=== PATIENT | male | born 1945 | race Caucasian/White ===

== ENCOUNTER → 2016-09-01 | Outpatient (CLI) | payer MEDICARE ==
--- NOTE | 2016-09-04 14:10 | PN ---
A 70-year-old male patient coming to see me in followup regarding symptomatic obstructing sleep apnea. The patient is currently on a CPAP pressure of 12 cm of water. His average CPAP use is 6 hours and 42 minutes. The treatment remains successful and his AHI is down to 0.1. No complaints. His sleep quality is good and the patient is waking up refreshed and alert during the day. Does not fall asleep or take any naps during the day. He is utilizing a Quattro Air Medium size full-face mask. BP is 118/54, pulse 71, respirations 16, temperature is 97.9, saturation 97% on room air. Height is 5, 4, weight is 352 and [place] Score is 8, BMP is 42.3. GENERAL APPEARANCE: Calm, comfortable. HEENT: Mallampati class 4, there is no goiter or neck masses. LUNGS: Clear to auscultation. Heart sounds are regular rate and rhythm, normal S1, S2. ABDOMEN: Soft, nontender, no organomegaly. EXTREMITIES: No edema, no cyanosis or clubbing. IMPRESSION: Symptomatic obstructive sleep apnea, currently on CPAP of 12 with excellent clinical response and compliance. PLAN: 1. Continue treatment at the same level of pressure. 2. If treatment is successful, see me back in a year's time. His supplies will be refilled including mask, tubing and filters. BK
== END | disposition home or self-care (01) ==
LOC: SLEEP 13:18
PROVIDERS: ATTEND Internal Medicine Critical Care Medicine
DX: G47.33 Obstructive sleep apnea (adult) (pediatric) (principal)

== ENCOUNTER → 2017-03-11 | Outpatient (CLI) | payer MEDICARE ==
[2017-03-11 12:23] LABS: Basophils % (A) 0 %; Eosinophils # (A) 0.3 k/uL (0-0.7); Eosinophils % (A) 4 %; HCT 36.9 % (39.0-53.0); HGB 11.4 gm/dL (13.0-17.5); Lymphocytes # (A) 1.1 k/uL (1.0-4.8); Lymphocytes % (A) 16 %; MCHC 30.9 g/dL (31.0-37.0); Mean Platelet Volume 7.7; Monocytes # (A) 0.3 k/uL (0-1.0); Monocytes % (A) 5 %; Neutrophils # (A) 4.9 k/uL (1.3-7.7); Neutrophils % (A) 73 %; Platelet Count 267 k/uL (150-450); RDW 13.5 % (11.5-15.5); WBC 6.8 k/uL (3.8-10.6)
[2017-03-11 12:32] LABS: ALT 27 U/L (21-72); AST 15 U/L (17-59); Albumin 3.9 g/dL (3.5-5.0); Alkaline Phosphatase 79 U/L (38-126); Anion Gap 10 mmol/L; Blood Urea Nitrogen 26 mg/dL (9-20); Calcium 9.6 mg/dL (8.4-10.2); Carbon Dioxide 27 mmol/L (22-30); Chloride 105 mmol/L (98-107); Cholesterol 124 mg/dL (<200); Glucose 138 mg/dL (74-99); HDL Cholesterol 48 mg/dL (40-60); LDL Cholesterol,Calculated 60 mg/dL (0-99); Potassium 4.3 mmol/L (3.5-5.1); Sodium 142 mmol/L (137-145); Total Bilirubin 0.4 mg/dL (0.2-1.3); Total Protein 6.6 g/dL (6.3-8.2); Triglycerides 80 mg/dL (<150)
[2017-03-11 13:03] LABS: Partial Thromboplastin Time 23.5 sec (22.0-30.0); Prothrombin Time 10.1 sec (9.0-12.0)
[2017-03-11 16:57] LABS: Hemoglobin A1C 6.6 % (4.0-6.0)
== END ==
LOC: LABPAT 11:44
PROVIDERS: ATTEND Orthopaedic Surgery
DX: Z01.818 Encounter for other preprocedural examination (principal); Z01.812 Encounter for preprocedural laboratory examination; Z79.01 Long term (current) use of anticoagulants; I10 Essential (primary) hypertension; E11.9 Type 2 diabetes mellitus without complications
CPT/HCPCS: 36415; 80053; 80061; 83036; 85025; 85610; 85730; 87070

== ENCOUNTER 2017-03-22 05:41 | Inpatient (IN) | payer MEDICARE ==
[2017-03-11 16:35] VITALS: BMI 43.6
--- NOTE | 2017-03-21 14:49 | HP ---
HISTORY AND PHYSICAL REASON FOR ADMISSION: Surgery is scheduled for 03/22/2017 HISTORY OF PRESENT ILLNESS: Asher Clifton is a 71-year-old patient seen with symptomatic left knee osteoarthritis. After treatment options were discussed, he elected to proceed with left total knee arthroplasty. Consent regarding the procedure was obtained. Medical clearance was provided by Dr. Alex Osullivan. PAST MEDICAL HISTORY: Hypertension, hyperlipidemia, rxj-gpslcds-zvexbgiko diabetes, cardiovascular disease, asthma. PAST SURGICAL HISTORY: Right total knee arthroplasty. MEDICATIONS: Glipizide, isosorbide, Lipitor, metformin, metoprolol, Plavix, quinapril, sertraline, Ventolin. ALLERGIES: IV DYE. SOCIAL HISTORY: Patient denies current tobacco use. PHYSICAL EXAMINATION: Evaluation of the left knee is range of motion is 0-120 degrees. There is tenderness along the medial joint line. Positive medial Dany's crepitus along the medial and patellofemoral compartments with range of motion. Pain with patellofemoral compression. Ligaments stable. Hip rotation without pain. Distal neurovascular exam intact. RADIOGRAPHS: Left knee radiographs reveal severe medial and moderate to severe patellofemoral compartment osteoarthritis. IMPRESSION: 1. Left knee osteoarthritis. 2. Rst-vspiuap-cnsfbchqf diabetes. 3. Hypertension. 4. Hyperlipidemia. 5. Coronary artery disease. PLAN: Left total knee arthroplasty. Surgery scheduled for 03/22/17. MMODL / IJN: [id number] /
[~2017-03-22 05:41] MED LIST: ACETAMINOPHEN TAB 500 MG TAB PO ONE; DEXAMETHASONE SOD PHOSPHATE 10 MG/ML 1 ML VIAL IV ONE; HYDROmorphone 0.5 MG/0.5 ML SYRINGE IVP PRN; LACTATED RINGERS 1,000 ML IV SCH; MELOXICAM 7.5 MG TAB PO ONE; MIDAZOLAM 2 MG/2 ML VIAL IV PRN; ONDANSETRON 4 MG/2 ML VIAL IVP ONE; TRANEXAMIC ACID 1,000 MG in SODIUM CHLORIDE 0.9% 50 ML IVPB ONE; ceFAZolin IN SWFI 2 GM/20 ML SYRINGE IVP ONE
[2017-03-22] MEDS ORDERED: LIDOCAINE 1% 20 ML VIAL (10MG/ML) FOR IV START INTRADERMA ONE (06:17)
[2017-03-22] MEDS ORDERED: LACTATED RINGERS 1,000 ML IV ONE ×2 (06:20→08:05)
[2017-03-22 06:31] LABS: Glucose,Whole Blood 105 mg/dL (75-99)
[2017-03-22] MEDS ORDERED: MIDAZOLAM 2 MG/2 ML VIAL IVP ONE (06:40)
[2017-03-22] MEDS ORDERED: diphenhydrAMINE 50 MG/ML 1 ML VIAL ONE (07:30)
[2017-03-22] MEDS ORDERED: SODIUM CHLORIDE 0.9% 100 ML BAG ONE (07:30)
[2017-03-22] MEDS ORDERED: GLYCOPYRROLATE 0.2 MG/ML 2 ML VIAL ONE (07:30)
[2017-03-22] MEDS ORDERED: PROPOFOL 10 MG/ML 20 ML VIAL IV ONE (07:30)
[2017-03-22] MEDS ORDERED: fentaNYL (PF) 50 MCG/ML 2 ML AMP ONE (07:30)
[2017-03-22] MEDS ORDERED: TRANEXAMIC ACID 1,000 MG/10 ML VIAL ONE (07:30)
[2017-03-22] MEDS ORDERED: SUCCINYLCHOLINE CHLORIDE 100 MG/5 ML SYR IV ONE (07:30)
[2017-03-22] MEDS ORDERED: MIDAZOLAM 2 MG/2 ML VIAL ONE (07:30)
[2017-03-22] MEDS ORDERED: ROPIVACAINE 246.25 MG, EPINEPHrine 0.5 MG, KETOROLAC 30 MG, cloNIDine HCL/PF 80 MCG, WA... MISCELLANE ONE ×5 (07:33)
[2017-03-22] MEDS ORDERED: ROPIVACAINE 1,100 MG, SODIUM CHLORIDE 0.9% 330 ML MISCELLANE PRN ×2 (07:45)
--- NOTE | 2017-03-22 07:46 | P.ONQ ---
Anesthesiology Proc Note - PNB - Peripheral Nerve Block Performed Left Adductor Canal Indication: Acute Post-Operative Pain, Requested by physician (Dr Pickering) Sedation Type: Sedate with meaningful contact maintained Preparation: Sterile Dressing Position: Supine Catheter: Indwelling Needle Types: Other (see comment) (Swapnil) Needle Size: 100mm (4") Needle Gauge: 20 Technique: Ultrasound Injectate: 0.5% Ropivacaine (see comment for volume) (20cc) Blood Aspirated: No Pain Paresthesia on Injection Noted: No Resistance on Injection: Normal Events: Uneventful and Well Tolerated
[2017-03-22] MEDS ORDERED: ceFAZolin 3,000 MG in SODIUM CHLORIDE 0.9% IRRIGATIO 3,000 ML IRRIGATION ONE (07:56)
--- NOTE | 2017-03-22 09:19 | P.OP ---
Date of Procedure: 03/22/17 Preoperative Diagnosis: Left knee osteoarthritis Postoperative Diagnosis: Left knee osteoarthritis Procedure(s) Performed: Left total knee arthroplasty Implants: 1. Bella persona size 7 cruciate-retaining standard left cemented femur 2. Bella persona size E left cemented tibia 3. Bella persona 13 mm medial congruent polyethylene tibial insert 4. Bella persona 35 mm all polyethylene cemented patella Anesthesia: regional (Adductor canal catheter), local, spinal Surgeon: José Luis Pickering Wardrobe Supervisor #1: Wesley Boyd Estimated Blood Loss (ml): 75 Pathology: other (Bone) Condition: stable Disposition: PACU Indications for Procedure: 71-year-old patient seen with symptomatic left knee osteoarthritis. After treatment options were discussed, he elected to proceed with total knee arthroplasty. Operative Findings: see description of procedure Description of Procedure: Patient was taken to the operative suite after having undergone placement of an and adductor canal catheter by the department of anesthesia. Patient underwent a spinal anesthetic by the department of anesthesia. Patient was given preoperative IV intake antibiotics and TXA. A well-padded tourniquet was placed about the left lower extremity. The lower extremity was then prepped and draped in the normal sterile orthopedic fashion. The extremity was elevated , a tourniquet was insufflated to 350. A standard anterior incision was made sharply through skin. Dissection was taken down through the subcutaneous soft tissues down to the extensor mechanism. A medial arthrotomy was performed, patella was everted and knee was flexed. There was advanced osteoarthritis noted. A proximal tibial cutting guide was positioned. Proximal tibial cut was made. A distal intramedullary femoral cutting guide was positioned, distal femoral cut made. We placed the appropriate sizing guide and selected the appropriate size. A distal 4-in-1 femoral cutting block was positioned, distal femoral cuts were made. We now placed a trial femoral component into position, along with an appropriate size tibial tray and insert. We now took the knee through range of motion and had full extension good flexion and good overall soft tissue balance noted. The patella was everted and a flush cut made with patellar quad tendon. We templated the patella, appropriate drill holes were made. An appropriate trial patella was positioned, knee was taken through full range of motion with the patella tracking very nicely. The trial patella was removed. Drill holes were made through the femoral component. All trial components were removed after marking off the appropriate rotation of the tibia. Retractors were now positioned along the proximal tibia. An appropriate keel punch was made with the appropriate size tibial guide. At this point appropriate size implants were chosen and opened. The joint was irrigated copiously with pulse lavage mechanical irrigation. The posterior capsule was infiltrated with local analgesic. We mixed antibiotic methylmethacrylate. Once the methyl methacrylate was ready, the tibial component was cemented into place removing any excess methylmethacrylate. The femoral component was cemented into place removing the removing any excess methylmethacrylate. We then inserted the appropriate size polyethylene tibial insert. We made sure that it was locked into position. We took the knee into full extension, and then back in a flexion making sure we had removed any excess methylmethacrylate. The patellar component was then cemented down and secured with clamp. Excess methylmethacrylate removed. We kept the knee in full extension, patellar clamp in position until methylmethacrylate had hardened. Once it had hardened the patellar clamp was removed. The knee was taken through full range of motion. The patella tracked nicely. There was good soft tissue balancing. The tourniquet was now released. Additional hemostasis was achieved via electrocautery. A second gram of TXA was given. The superficial soft tissues were infiltrated with local analgesic. The wound was again irrigated with pulse lavage mechanical irrigation. The extensor mechanism was repaired with Vicryl. We checked the repair with range of motion and it was stable. The subcutaneous soft tissues were repaired with Vicryl in layers. The skin was approximated with pernio/Dermabond. Sterile dressings were applied followed by loose web roll and Ayo bandage. The patient was transferred to a bed, and taken to recovery in stable and satisfactory condition. Marcos ALEMAN assisted with the procedure.
[2017-03-22] MEDS ORDERED: hydrOXYzine PAMOATE 25 MG CAP PO PRN (09:20)
[2017-03-22] MEDS ORDERED: HYDROmorphone 0.5 MG/0.5 ML SYRINGE IVP PRN ×3 (09:20)
[2017-03-22] MEDS ORDERED: ONDANSETRON 4 MG/2 ML VIAL IVP PRN (09:20)
[2017-03-22] MEDS ORDERED: NALOXONE 0.4 MG/ML 1 ML VIAL IV PRN (09:20)
[2017-03-22] MEDS ORDERED: HYDROcodone/APAP 7.5-325MG 1 EACH TAB PO PRN ×2 (09:20)
--- NOTE | 2017-03-22 09:54 | XR ---
EXAMINATION TYPE: XR knee limited LT DATE OF EXAM: 03/22/2017 CLINICAL HISTORY: Postoperative evaluation Two views of the left knee are submitted. Identified are changes of total knee arthroplasty with fem oral and tibial components appearing well seated. Postsurgical soft tissue changes are noted. Align ment is anatomic.
[2017-03-22 10:01] LABS: Glucose,Whole Blood 135 mg/dL (75-99)
[2017-03-22] MEDS: SODIUM CHLORIDE 0.9% 1,000 ML IV SCH (10:58)
[2017-03-22 11:44] LABS: Glucose,Whole Blood 180 mg/dL (75-99)
[2017-03-22] MEDS: SERTRALINE 100 MG TAB PO SCH (12:41)
[2017-03-22] MEDS: TAMSULOSIN 0.4 MG CAP.ER.24H PO SCH (12:42)
[2017-03-22] MEDS: INSULIN ASPART 100 UNIT/ML 1 ML 10 ML VIAL SQ SCH ×3 (12:56→22:45)
[2017-03-22] MEDS: traMADol 50 MG TAB PO SCH ×3 (12:56→21:56)
[2017-03-22] MEDS: ceFAZolin IN SWFI 2 GM/20 ML SYRINGE IVP SCH (15:30)
[2017-03-22 17:08] LABS: Glucose,Whole Blood 163 mg/dL (75-99)
[2017-03-22] MEDS: metFORMIN 500 MG TAB PO SCH (17:58)
[2017-03-22] MEDS: METOPROLOL TARTRATE 25 MG TAB PO SCH (20:07)
[2017-03-22 20:22] LABS: Glucose,Whole Blood 126 mg/dL (75-99)
[2017-03-22] MEDS ORDERED: SENNOSIDES-DOCUSATE SODIUM 1 EACH TAB PO SCH (21:00)
[2017-03-22] MEDS ORDERED: ATORVASTATIN 10 MG TAB PO SCH (21:00)
[2017-03-22] MEDS: ENOXAPARIN 30 MG/0.3 ML SYRINGE SQ SCH (21:57)
--- NOTE | 2017-03-22 22:02 | CONS ---
CONSULTATION DATE OF CONSULTATION: 03/22/17 REASON FOR CONSULTATION: Medical management requested by Dr. Pickering. CONSULTATIONS: A pleasant 71-year-old patient of Dr. Osullivan. Has undergone left total knee arthroplasty. Pain is well controlled. No nausea, vomiting. No chest pain. The patient's chronic stable medical conditions include diabetes, hyperlipidemia, hypertension, silent myocardial infarction, osteoarthritis, sleep apnea, BPH, anxiety. Denies any nausea, vomiting. No cardiac history. Pain is well controlled. REVIEW OF SYSTEMS: CONSTITUTIONAL: None. HEENT none. Respiratory none. Cardiovascular none. Gastrointestinal and genitourinary none. Musculoskeletal: Pain in different joints. Dermatological and hematologic, lymphatic none. Psychiatry none. Neurological none. PAST HISTORY: Diabetes, hypertension, hyperlipidemia, silent myocardial infarction, osteoarthritis, some anxiety, BPH, obstructive sleep apnea. PAST SURGICAL HISTORY: Bariatric surgery, cholecystectomy, cardiac catheterization, tonsillectomy, right total knee arthroplasty, stomach stapling, 1994, infection resulted in tumors being removed, eye surgery for lazy eye. SOCIAL HISTORY: . Does not smoke or drink alcohol. FAMILY HISTORY: Skin and throat and nasal cancer. HOME MEDICATIONS: 1. Glucophage 1000 mg p.o. b.i.d. 2. Glipizide XL 5 mg p.o. daily. 3. Flomax 0.4 mg p.o. daily. 4. Zoloft 100 mg p.o. daily. 5. Accupril 5 mg p.o. daily. 6. Lopressor 25 p.o. b.i.d. 7. Motrin 600 mg q.6h p.r.n. 8. Plavix 75 mg p.o. daily. 9. Lipitor 10 mg p.o. q.h.s. 10.Aspirin 81 mg p.o. daily. 11.Tylenol 650 mg p.o. q.4 p.r.n. ALLERGIES: IV CONTRAST DYE. PHYSICAL EXAMINATION: Temperature 97.5, pulse 84, respiratory rate 16, blood pressure 140/69, pulse ox 99% on 2 L. GENERAL APPEARANCE: Well built, BMI 43.6. Lying in bed comfortable. Eyes pupils equal. Conjunctivae normal. HEENT: Oral cavity normal. Neck: JVD not raised. Mass not palpable. Respiratory effort normal. Lungs are clear. Cardiovascular: 1st and 2nd sounds no edema. ABDOMEN: Soft, nontender. Liver and spleen not palpable. Lymphatics: No lymph nodes palpable in neck or axillae. Psychiatry: Alert and oriented times three. Mood and affect normal. Neurological: Pupils equal. Cranial nerves grossly intact. Power and sensation grossly intact. Musculoskeletal: Left knee in a dressing. INVESTIGATIONS: Blood work from March 21 shows white count 6.8, hemoglobin 11.4, potassium 4.3, creatinine 1.25. ASSESSMENT: 1. Left total knee arthroplasty. 2. Diabetes mellitus type 2 on oral hypoglycemic. 3. Hyperlipidemia. 4. Essential hypertension. 5. Coronary artery disease with prior history of sudden myocardial infarction. 6. Primary osteoarthritis. 7. Obstructive sleep apnea uses CPAP machine. 8. Benign prostatic hypertrophy. 9. Anxiety, not otherwise specified. 10.Morbid obesity. BMI 43.6. PLAN: Home medications are resumed. The patient on Lovenox for DVT prophylaxis. The patient should see a dietitian for weight loss measures. Care was discussed with the patient. Medications reviewed. Thank you Dr. Pickering. Copy to Dr. Osullivan. NETTE / LIDIAN: [id number] /
[2017-03-23] MEDS: ceFAZolin IN SWFI 2 GM/20 ML SYRINGE IVP SCH (00:01)
[2017-03-23 02:32] VITALS: RESP 16
[2017-03-23] MEDS: SODIUM CHLORIDE 0.9% 1,000 ML IV SCH (05:39)
[2017-03-23 06:59] LABS: Glucose,Whole Blood 139 mg/dL (75-99)
[2017-03-23 07:14] LABS: Basophils % (A) 0 %; Eosinophils # (A) 0.2 k/uL (0-0.7); Eosinophils % (A) 2 %; HCT 28.6 % (39.0-53.0); Lymphocytes # (A) 1.4 k/uL (1.0-4.8); Lymphocytes % (A) 20 %; MCH 30.8 pg (25.0-35.0); MCHC 31.6 g/dL (31.0-37.0); MCV 97.4 fL (80.0-100.0); Mean Platelet Volume 7.3; Monocytes # (A) 0.5 k/uL (0-1.0); Monocytes % (A) 7 %; Neutrophils # (A) 4.6 k/uL (1.3-7.7); Neutrophils % (A) 69 %; Platelet Count 222 k/uL (150-450); RBC 2.94 m/uL (4.30-5.90); RDW 13.4 % (11.5-15.5); WBC 6.8 k/uL (3.8-10.6)
[2017-03-23 07:18] LABS: HGB 9.1 gm/dL (13.0-17.5)
[2017-03-23 07:40] VITALS: BP 115/71; PULSE 72; TEMP 98
[2017-03-23] MEDS: INSULIN ASPART 100 UNIT/ML 1 ML 10 ML VIAL SQ SCH ×3 (07:53→14:13)
[2017-03-23] MEDS: ENOXAPARIN 30 MG/0.3 ML SYRINGE SQ SCH (08:11)
[2017-03-23] MEDS: traMADol 50 MG TAB PO SCH ×2 (08:12→15:03)
[2017-03-23] MEDS: TAMSULOSIN 0.4 MG CAP.ER.24H PO SCH (08:12)
[2017-03-23] MEDS: SERTRALINE 100 MG TAB PO SCH (08:12)
[2017-03-23] MEDS: metFORMIN 500 MG TAB PO SCH (08:12)
[2017-03-23] MEDS: METOPROLOL TARTRATE 25 MG TAB PO SCH (08:13)
--- NOTE | 2017-03-23 08:24 | P.PN ---
Progress Note - Text 03/23 554 71-year-old male status post total knee replacement. Patient seen and evaluated for pain control this morning, he has an On-Q pump running at 8 mL an hour with a pain score of 3. Plan to continue the On-Q pump infusion.
[2017-03-23] MEDS ORDERED: LISINOPRIL 5 MG TAB PO SCH (09:00)
[2017-03-23] MEDS ORDERED: CLOPIDOGREL 75 MG TAB PO SCH (09:00)
[2017-03-23] MEDS ORDERED: FAMOTIDINE 20 MG TAB PO SCH (09:00)
[2017-03-23] MEDS ORDERED: MELOXICAM 7.5 MG TAB PO SCH (09:00)
--- NOTE | 2017-03-23 11:44 | P.PN ---
Subjective Progress Note Date: 03/23/17 Principal diagnosis: Status post left total knee arthroplasty Patient is seen today resting in his hospital bed, he appears comfortable. His pain is well-controlled. He's ambulate well with therapy. He denies any headaches, lightheadedness, chest pain or shortness of breath. Objective - Vital Signs Vital signs: Vital Signs Temp 98.0 F 03/23/17 07:00 Pulse 72 03/23/17 07:00 Resp 16 03/23/17 07:00 BP 115/71 03/23/17 07:00 Pulse Ox 96 03/23/17 07:00 Intake & Output 03/22/17 03/23/17 03/23/17 18:59 06:59 18:59 Intake Total 1901 600 480 Output Total 75 400 Balance 1826 200 480 Weight 113.398 kg Intake: IV 1401 400 Sodium Chloride 0.9% 1, 300 400 000 ml @ 50 mls/hr IV . Q20H MERYL Rx#:[id number] Oral 500 200 480 Output: Urine 400 Estimated Blood Loss 75 Other: Voiding Method Toilet Toilet Toilet Urinal Urinal Urinal # Voids 2 - Exam Left lower extremity: Incision is clean, dry, and intact. The prineo tape is in good condition. There is minimal soft tissue swelling and ecchymosis surrounding the medial and lateral aspects of the incision. Calf is soft, no tenderness with palpation. Plantar flexion, dorsiflexion, EHL, FHL are intact. Sensory exam to light touch throughout the extremity is intact, dorsal pedis pulses 2+. - Labs CBC & Chem 7: 03/23/17 06:18 Labs: Abnormal Lab Results - Last 24 Hours (Table) 03/22/17 03/22/17 03/22/17 Range/Units 11:41 17:02 20:09 RBC (4.30-5.90) m/uL Hgb (13.0-17.5) gm/dL Hct (39.0-53.0) % POC Glucose (mg/dL) 180 H 163 H 126 H (75-99) mg/dL 03/23/17 03/23/17 Range/Units 06:18 06:57 RBC 2.94 L (4.30-5.90) m/uL Hgb 9.1 L D (13.0-17.5) gm/dL Hct 28.6 L (39.0-53.0) % POC Glucose (mg/dL) 139 H (75-99) mg/dL Assessment and Plan Plan: Assessment: 1. Postop day 1 status post left total knee arthroplasty Plan: 1. Pain control, continue use of oral medication 2. Continue work with physical therapy and use of CPM 3. GI and DVT prophylaxis, continue Lovenox during hospital stay. We will resume his Plavix at home 4. Encourage incentive spirometer 5. Medical recommendations 6. Discharge planning: Patient will be discharged home today Time with Patient: Less than 30
--- NOTE | 2017-03-23 11:46 | P.DS ---
Providers Date of admission: 03/22/17 05:41 Expected date of discharge: 03/23/17 Attending physician: José Luis Pickering Consults: 03/22/17 09:20 Consult Physician Routine Consulting Provider: Beau Shepard Consult Reason/Comments: Medical management Do you want consulting provider notified?: Yes Primary care physician: [facility] Course: Date of admission: 03/22/2017 Date of discharge: 03/23/2017 Admission diagnosis: Status post left total knee arthroplasty Discharge diagnosis: Same Attending physician: Dr. Pickering Surgical procedures: Left total knee arthroplasty Brief history: Patient is a 71-year-old male with a history of with progressive primary left knee osteoarthritis. At this point patient has failed conservative treatment measures and has opted to proceed with a elective left total knee arthroplasty. Hospital course: Details of patient's surgery can be found in operative report. Patient tolerated the procedure well and was subsequently transported to orthopedic floor. Patient's orthopeidc and medical care was provided daily. Patient had daily laboratory tests performed for evaluation of overall blood counts. Patient had daily physical therapy to include strengthening range of motion as well as education with walker ambulation. Patient had daily CPM usage as part of their physical therapy program. Patient was treated with Lovenox for their postoperative DVT prophylaxis during their inpatient stay. Patient was noted to have a relatively uneventful postoperative course. Patient reported satisfactory pain control with oral pain medications by postoperative day 0. Patient showed satisfactory progress with physical therapy. Patient moved steadily through the program and had no difficulty meeting the goals by postoperative day 1. Given patient's otherwise satisfactory course and having met physical therapy goals, plan is to discharge patient home on postoperative day 1. Discharge condition/disposition: Patient will be discharged home in stable condition. Discharge medications: Instructions are given on resumption of patient's normal daily medications per primary care recommendation, in addition patient will be prescribed [place] 7.5 mg/325 mg, tramadol 50 mg, Colace 100 mg. Discharge instructions: 1. Wound care and infection precautions, keep incision dry and covered while showering, no lotions, creams, moisturizers. No soaking, tubs, pools, hottubs. Do not scrub over the incision. 2. Weight-bear as tolerated with walker / cane until follow-up. 3. Ice and elevate when necessary. Do not exceed 20 minutes per hour with ice pack. 4. Utilize compression sleeve until seen at first follow up appointment. 5. Visiting nursing care. 6. Home physical therapy including home CPM. 7. Pain meds and anticoagulants per prescription. 8. Pain medication has potential to cause constipation. Increase oral fluid and fiber intake. Contact primary care provider if you have not had a bowel movement within 48 hours after discharge 9. No anti-inflammatory medication until discussed at first post operative visit, this including Motrin, Aleve, Mobic, Diclofenac. 10. Follow up in office at 2 weeks postop with Marcos Boyd PA-C 11. Follow up with your primary care doctor 7-10 days after discharge. 12. Contact [facility] with any questions, . Procedures: Left total knee arthroplasty Patient Condition at Discharge: Good Plan - Discharge Summary Discharge Rx Participant: Yes New Discharge Prescriptions: New Docusate [Colace] 100 mg PO DAILY #30 capsule HYDROcodone/APAP 7.5-325MG [[place] 7.5] 1 - 2 each PO Q6HR PRN #60 tab PRN Reason: Pain traMADol HCl [Ultram] 50 mg PO Q6H PRN #40 tab PRN Reason: Pain No Action glipiZIDE [Glipizide Xl] 5 mg PO QAM Tamsulosin HCl [Tamsulosin HCl] 0.4 mg PO DAILY Sertraline HCl [Sertraline HCl] 100 mg PO QAM Quinapril HCl [Accupril] 5 mg PO DAILY Clopidogrel Bisulfate [Clopidogrel] 75 mg PO DAILY Atorvastatin [Lipitor] 10 mg PO HS Metoprolol Tartrate [Lopressor] 25 mg PO BID Aspirin 81 mg PO DAILY Ibuprofen [Motrin] 600 mg PO Q6HR PRN PRN Reason: Pain Acetaminophen Tab [Tylenol Tab] 650 mg PO Q4H PRN PRN Reason: Pain metFORMIN HCL [Glucophage] 1,000 mg PO BID Discharge Medication List Aspirin 81 mg PO DAILY 01/22/15 [History] Atorvastatin [Lipitor] 10 mg PO HS 01/22/15 [History] Clopidogrel Bisulfate [Clopidogrel] 75 mg PO DAILY 01/22/15 [History] Metoprolol Tartrate [Lopressor] 25 mg PO BID 01/22/15 [History] Quinapril HCl [Accupril] 5 mg PO DAILY 01/22/15 [History] Sertraline HCl [Sertraline HCl] 100 mg PO QAM 01/22/15 [History] Tamsulosin HCl [Tamsulosin HCl] 0.4 mg PO DAILY 01/22/15 [History] glipiZIDE [Glipizide Xl] 5 mg PO QAM 01/22/15 [History] Acetaminophen Tab [Tylenol Tab] 650 mg PO Q4H PRN 03/11/17 [History] Ibuprofen [Motrin] 600 mg PO Q6HR PRN 03/11/17 [History] metFORMIN HCL [Glucophage] 1,000 mg PO BID 03/22/17 [History] Docusate [Colace] 100 mg PO DAILY #30 capsule 03/23/17 [Rx] HYDROcodone/APAP 7.5-325MG [[place] 7.5] 1 - 2 each PO Q6HR PRN #60 tab 03/23/17 [ Rx] traMADol HCl [Ultram] 50 mg PO Q6H PRN #40 tab 03/23/17 [Rx] Follow up Appointment(s)/Referral(s): [facility], [NON-STAFF] - Wesley Boyd PAC [PHYSICIAN TRIPE COOKER] - 2 Weeks Activity/Diet/Wound Care/Special Instructions: Orthopedic Discharge Instructions: 1. Wound care and infection precautions, keep incision dry and covered while showering, no lotions, creams, moisturizers. No soaking, pools, hot tubs. Do not scrub over incision. 2. Weight-bear as tolerated with walker / cane until follow-up. 3. Ice and elevate when necessary. Do not exceed 20 minutes per hour with ice pack. 4. Utilize compression sleeve until seen at first follow up appointment. 5. Visiting nursing care. 6. Home physical therapy including home CPM. 7. Pain meds and anticoagulants per prescription. 8. Pain medication has potential to cause constipation. Increase oral fluid and fiber intake. Contact primary care provider if you have not had a bowel movement within 48 hours after discharge. 9. No anti-inflammatory medication until discussed at first post operative visit, this including Motrin, Aleve, Mobic, Diclofenac. 10. Follow up in office at 2 weeks postop with Marcos Boyd PA-C 11. Follow up with your primary care doctor 7-10 days after discharge. 12. Contact [facility] with any questions, . Discharge Disposition: HOME WITH HOME HEALTH SERVICES
[2017-03-23 11:49] LABS: Glucose,Whole Blood 71 mg/dL (75-99)
[2017-03-23 13:17] LABS: Hemoglobin A1C 6.7 % (4.0-6.0)
--- NOTE | 2017-03-23 20:12 | PN ---
PROGRESS NOTE DATE OF SERVICE: 03/23/2017 PRESENTING COMPLAINT: Left knee surgery. INTERVAL HISTORY: Patient is status post left total knee arthroplasty, doing well. Pain is controlled. No chest pain or shortness of breath. No nausea or vomiting. Tolerating a diet. Has been out of bed with therapy. Family is at the bedside. Review of systems was done for constitutional, cardiovascular, GI, pulmonary, musculoskeletal; relevant findings as above. Current medications are reviewed. On examination, temperature 98, pulse 72, respiration 16, blood pressure 115/71, pulse ox 96% on room air. GENERAL APPEARANCE: Lying in bed. Comfortable. EYES: Pupils equal. Conjunctivae normal. NECK: JVD not raised. Mass not palpable. HEENT: External appearance of nose and ears normal. Oral cavity normal. RESPIRATORY: Effort normal. Lungs are normal. CARDIOVASCULAR: First and second sounds normal. No edema. ABDOMEN: Soft, nontender. Liver and spleen not palpable. PSYCHIATRY: Alert and oriented x3. Mood and affect normal. MUSCULOSKELETAL: Dressing over the left knee. INVESTIGATIONS: Hemoglobin 9.1. Accu-Cheks are noted. ASSESSMENT: 1. Left total knee arthroplasty. 2. Diabetes mellitus, type 2, on oral hypoglycemic. 3. Hyperlipidemia. 4. Essential hypertension. 5. Coronary artery disease with prior history of silent myocardial infarction. 6. Primary osteoarthritis. 7. Obstructive sleep apnea; uses CPAP machine. 8. Benign prostatic hypertrophy. 9. Anxiety not otherwise specified. 10.Morbid obesity with body mass index of 43.6. 11.Acute blood loss anemia, expected from surgery. PLAN: Continue current medication and treatment plan. The patient may take iron supplements. If discharged, should follow up with his family doctor. Thank you, Dr. Pickering. NETTE / ИРИНА: [id number] /
== END 2017-03-23 16:34 | disposition home health service (06) | DRG 470 ==
LOC: 2ORMAIN 05:41 → 3SUR 09:31
PROVIDERS: ADMIT Orthopaedic Surgery; ATTEND Orthopaedic Surgery
PROC: 0SRD0J9 Replacement of Left Knee Joint with Synthetic Substitute, Cemented, Open Approach (ICD-10-PCS; principal; 2017-03-22 07:30)
DX: M17.12 Unilateral primary osteoarthritis, left knee (principal); D62 Acute posthemorrhagic anemia; E11.9 Type 2 diabetes mellitus without complications; Z68.41 Body mass index [BMI] 40.0-44.9, adult; E66.01 Morbid (severe) obesity due to excess calories; E78.5 Hyperlipidemia, unspecified; F41.9 Anxiety disorder, unspecified; G47.33 Obstructive sleep apnea (adult) (pediatric); I10 Essential (primary) hypertension; I25.10 Atherosclerotic heart disease of native coronary artery without angina pectoris; I25.2 Old myocardial infarction; J45.909 Unspecified asthma, uncomplicated; N40.0 Benign prostatic hyperplasia without lower urinary tract symptoms; Z79.02 Long term (current) use of antithrombotics/antiplatelets; Z79.82 Long term (current) use of aspirin; Z79.84 Long term (current) use of oral hypoglycemic drugs; Z79.899 Other long term (current) drug therapy; Z91.041 Radiographic dye allergy status
CPT/HCPCS: 83036; 85025; 88300

== ENCOUNTER → 2017-07-20 | Outpatient (CLI) | payer MEDICARE ==
--- NOTE | 2017-07-20 15:48 | CT ---
EXAMINATION TYPE: CT brain wo con DATE OF EXAM: 07/20/2017 COMPARISON: MRI 06/08/2011 HISTORY: 71 year-old male post concussion syndrome, ALAS, dizziness since fall 2 months ago TECHNIQUE: Examination was done in axial plane without intravenous contrast. Coronal and sagittal r econstructions performed. CT DLP: 1090.4 mGycm Automated exposure control for dose reduction was used. FINDINGS: There is no evidence of acute intracranial hemorrhage, acute ischemic changes, mass, mass-effect, or extra-axial fluid collection. There is no effacement of cerebral sulci or basal subarachnoid cister ns. There is no hydrocephalus. There is no midline shift. Ledesma-white matter distinction is preserv ed. 5 mm ectasia of the distal right internal carotid artery/proximal right MCA appears similar to 06/08/19 12. Mild patchy white matter hypodensities in both cerebral hemispheres likely related to changes of chronic small vessel ischemic disease. Mild age-related generalized supratentorial volume loss. Trace mucosal thickening maxillary sinuses and moderate mucosal thickening ethmoid air cells. Mastoid air cells well pneumatized. Orbits and globes are intact. IMPRESSION: 1. No acute intracranial abnormality seen. Mild changes of chronic small vessel ischemic disease and age-related mild atrophy. 2. Mild to moderate chronic ethmoid and maxillary sinus disease.
== END | disposition home or self-care (01) ==
LOC: RADCTMAIN 13:15
PROVIDERS: ATTEND Internal Medicine
DX: G31.9 Degenerative disease of nervous system, unspecified (principal); I67.82 Cerebral ischemia
CPT/HCPCS: 70450

== ENCOUNTER → 2017-08-11 | Outpatient (CLI) | payer MEDICARE ==
--- NOTE | 2017-08-11 18:58 | PN ---
PROGRESS NOTE This 71-year-old male patient came to see me in followup regarding his obstructive sleep apnea. This is his annual check. The patient continues to be treating his sleep apnea with CPAP at a pressure of 12 cm of water. He has a Respironics REMstar CPAP unit which is set at a pressure of 12 cm of water. On the compliance data, the patient is averaging about 6 hours and 18 minute of CPAP use per night. His CPAP use for more than 4 hours is 100%. Leak factor is only 4%. His AHI while on treatment is down to 0.9. His weight is down. He used to weigh 252, is currently 243, and he is using the Alecia View full-face mask. He is very much liking this current mask and his leak has improved considerably. He has no complaints and is benefitting from treatment. He is waking up alert and refreshed during the day. He has no specific complaints otherwise for now. No nocturnal dyspnea, heartburn, chest pain or any other major hypersomnia or sleepiness during the day. REVIEW OF SYSTEMS: A 12-point review of system was done. Positive findings are mentioned above in the history of present illness. He has been losing weight. No fever or chills. No nausea, vomiting or diarrhea. No chest pain. No shortness of breath. No swelling in lower extremities. No stroke. No headaches. No altered mentation. BP is 144/61, pulse 70, respirations 16, temperature 97.6, saturation 97% on room air. Weight is 243, height is 5 feet 4 inches. GENERAL APPEARANCE: Calm, comfortable, in no acute distress. Head is atraumatic, normocephalic. Neck is supple. Shows crowded posterior pharynx is present. There is no goiter or neck masses. LUNGS: Clear to auscultation. Heart sounds are regular rate and rhythm. Normal S1, S2. No S3. No murmurs. ABDOMEN: Soft, nontender. No organomegaly. EXTREMITIES: No edema. No cyanosis or clubbing. Neurologically, OA x3. There are no focal neurological deficits. PSYCHIATRIC: Negative for anxiety or depression. IMPRESSION: 1. Obstructive sleep apnea. The patient continues to receive successful CPAP therapy. He is currently on CPAP pressure of 12 cm of water. He is benefiting from the treatment. He is demonstrating excellent clinical response and compliance based on the compliancy data. 2. Obesity with interval weight loss. Current BMI is 41.7. 3. Hypersomnia, improved. [place] score is down to 8. PLAN: 1. Renew the CPAP supplies. 2. Continue same CPAP pressure setting. 3. Continue Alecia View full-face mask medium size. 4. Re-order filters and supplies. 5. See me back in a year's time, earlier if needed. MMODL / IJN: [id number] /
== END | disposition home or self-care (01) ==
LOC: SLEEP 14:07
PROVIDERS: ATTEND Internal Medicine Critical Care Medicine
DX: G47.33 Obstructive sleep apnea (adult) (pediatric) (principal); E66.9 Obesity, unspecified; G47.10 Hypersomnia, unspecified; Z99.89 Dependence on other enabling machines and devices; Z68.41 Body mass index [BMI] 40.0-44.9, adult

== ENCOUNTER → 2017-10-19 | Outpatient (CLI) | payer MEDICARE ==
[2017-10-19 11:21] LABS: Basophils % (A) 0 %; Eosinophils # (A) 0.2 k/uL (0-0.7); Eosinophils % (A) 3 %; HCT 37.4 % (39.0-53.0); HGB 12.3 gm/dL (13.0-17.5); Lymphocytes # (A) 1.2 k/uL (1.0-4.8); Lymphocytes % (A) 16 %; MCH 30.7 pg (25.0-35.0); MCHC 32.9 g/dL (31.0-37.0); MCV 93.5 fL (80.0-100.0); Mean Platelet Volume 7.9; Monocytes # (A) 0.4 k/uL (0-1.0); Monocytes % (A) 6 %; Neutrophils # (A) 5.2 k/uL (1.3-7.7); Neutrophils % (A) 73 %; Platelet Count 241 k/uL (150-450); RDW 13.4 % (11.5-15.5); WBC 7.1 k/uL (3.8-10.6)
[2017-10-19 11:33] LABS: Appearance,Urine Clear (Clear); Bilirubin,Urine Negative (Negative); Blood,Urine Negative (Negative); Color,Urine Yellow; Glucose,Urine (UA) Negative (Negative); Ketones,Urine Negative (Negative); Leukocyte Esterase,Urine Moderate (Negative); Mucus,Urine Rare /hpf; Nitrite,Urine Negative (Negative); PH, Urine 5.5 (5.0-8.0); Protein,Urine Trace (Negative); RBC,Urine 3 /hpf (0-5); Specific Gravity,Urine 1.013 (1.001-1.035); Sperm,Urine Few /hpf; Squamous Epithelial Cell,Urine <1 /hpf (0-4); Urobilinogen,Urine <2.0 mg/dL (<2.0); WBC,Urine 10 /hpf (0-5)
[2017-10-19 11:34] LABS: Albumin 3.9 g/dL (3.5-5.0); Calcium 9.4 mg/dL (8.4-10.2); Potassium 4.6 mmol/L (3.5-5.1); Total Bilirubin 0.6 mg/dL (0.2-1.3); Total Protein 6.6 g/dL (6.3-8.2)
[2017-10-19 12:02] LABS: Prostate Specific Antigen 2.79 ng/mL (0.00-4.00)
== END | disposition home or self-care (01) ==
LOC: LABWHC1 10:40
PROVIDERS: ATTEND Internal Medicine
DX: E11.9 Type 2 diabetes mellitus without complications (principal); I10 Essential (primary) hypertension; E55.9 Vitamin D deficiency, unspecified; Z12.5 Encounter for screening for malignant neoplasm of prostate
CPT/HCPCS: 36415; 80053; 80061; 81001; 82043; 82306; 82570; 84153; 85025

== ENCOUNTER → 2018-08-23 | Outpatient (CLI) | payer MEDICARE ==
--- NOTE | 2018-08-23 16:34 | PN ---
PROGRESS NOTE Asher is 72, coming in for an annual check regarding obstructive sleep apnea. The patient has been using his original CPAP unit which is Respironics units at a pressure of 12 cm of water. His weight has been stable. He has been extremely compliant. His CPAP use for more than 4 hours is more than 75%. He is averaging about 6 hours of CPAP use per night. His AHI is down to 0.2. His weight has been stable. He is using a full-face mask. He does not have any intention to change his machine or his mask at this point in time. He is very content and happy with the treatment. No palpitations. No chest pain. No hypersomnia or sleepiness. Sleep quality is good and there has been no new onset comorbidities over the past 12 months. REVIEW OF SYSTEMS: Fourteen-point review of system was done. Positive findings are mentioned above in the history of present illness. He has no complaints. His treatment is successful. Sleep quality is good. No sleep paralysis, hallucinations or cataplexy. No nightmares. No restlessness in lower extremities. No headaches. No stroke. PHYSICAL EXAMINATION: BP is 151/78, pulse 65, respirations 16, temperature 97.2, saturation 97% on room air. Height is 5 feet, 4 inches, weight is 250. BMI 42.9. GENERAL APPEARANCE: Calm, comfortable. HEAD is atraumatic, normocephalic. NECK: Supple. No JVD. No goiter or neck masses. Mallampati class IV. LUNGS: Clear to auscultation. HEART: Sounds regular rate and rhythm. Normal S1/S2. No S3, no murmurs. ABDOMEN: Soft, nontender. No organomegaly. EXTREMITIES: No edema. No cyanosis or clubbing. NEUROLOGIC: Alert and oriented x3. No focal neurological deficits. PSYCHIATRIC: Negative for anxiety or depression. SKIN is negative for any wounds or ulceration. IMPRESSION: 1. Symptomatic obstructive sleep apnea currently well treated with a CPAP pressure of 12 cm of water. The patient remains extremely compliant. 2. Obesity with a BMI of 42.9. 3. Hypersomnia recovered [place] score is down to 5. 4. Hyperlipidemia. 5. Diabetes mellitus. 6. Benign prostatic hypertrophy. 7. History of depression. PLAN: 1. Continue same medication. 2. Continue same CPAP unit. 3. Continue same CPAP pressure setting. 4. Continue same mask interface. 5. Encourage weight loss. 6. See me back in a year's time in follow up. 7. Treatment is successful. He is considering to update his machine at later stage to a newer generation ResMed units. MMODL / IJN: [id number] /
== END ==
LOC: SLEEP 14:14
PROVIDERS: ATTEND Internal Medicine Critical Care Medicine
DX: G47.33 Obstructive sleep apnea (adult) (pediatric) (principal); E66.9 Obesity, unspecified; Z68.41 Body mass index [BMI] 40.0-44.9, adult; E78.5 Hyperlipidemia, unspecified; E11.9 Type 2 diabetes mellitus without complications; N40.0 Benign prostatic hyperplasia without lower urinary tract symptoms; F32.9 Major depressive disorder, single episode, unspecified; Z99.89 Dependence on other enabling machines and devices

== ENCOUNTER → 2020-12-10 | Outpatient (CLI) | payer MEDICARE ==
--- NOTE | 2020-12-10 13:40 | P.PN ---
Subjective Progress Note Date: 12/10/20 75-year-old male patient with established diagnosis of obstructive sleep apnea the patient has been on CPAP therapy for many years. He is currently using his second CPAP unit and this was given to him over the course of his [facility] treatment. There is an older generation Respironics units which is adjusted at a pressure of 12 cm of water. He is also using a fullface mask. Doing well. No complaints. Is currently retired. He continues to use the CPAP overnight as the patient continues to benefit from it then he is waking of her first alert during the day. His [place] score is down to 4. Meanwhile, based on today's compliance evaluation, the patient has been averaging around 7 hours and 18 min utes of CPAP use per night and he CPAP usage for more than 4 hours that 28 out of 30. His leak is minimal, no periodic breathing, his AHI while on treatment is down to 0.1. He has a fullface mask and he is using the wizard model. No morning headaches. No nighttime shortness of breath or chest pain. No difficulty in CPAP tolerance and the patient remains quite comfortable and compliant. No new onset comorbid conditions. He underwent a cardiac catheterization recently for some nonspecific chest pain and he was found to have nonocclusive disease. He was offered risk factor modification. He has diabetes and he takes oral hypoglycemics and the patient remains on a combination of aspirin and Plavix. He takes a combination of Accupril and metoprolol for blood pressure control. Medications: Accupril 10 mg half a tablet a day, Flomax 0.4 mg as 1 times a day, Glucophage 500 mg twice a day, Glucotrol XL 2.5 mg by mouth 2 tablets in the morning and one tablets in the evening, Lipitor 10 mg by mouth daily, Lopressor 50 mg half a tablet twice a day, Plavix 75 mg by mouth daily, Zoloft 100 mg by mouth daily, and [id number] aspirin 81 mg by mouth daily, Centrum Silver, vitamin B6 Objective - Exam BP is 169/85, pulse is 67, respirations 20, temperature is 97.7, body mass index is 42, height is 5 feet and 5 inches, weight is 253 pounds, oxygen saturation is 95%. Gen. appearance, comfortable likely distress, obese, Head exam was generally normal. There was no scleral icterus or corneal arcus. Mucous membranes were moist. Neck was supple and without jugular venous distension, thyromegaly, or carotid bruits. Carotids were easily palpable bilaterally. There was no adenopathy.There is considerable crowding of the posterior oropharynx with a Mallampati class IV Lungs were clear to auscultation and percussion, and with normal diaphragmatic excursion. No wheezes or rales were noted. Cardiac exam revealed the PMI to be normally situated and sized. The rhythm was regular and no extrasystoles were noted during several minutes of auscultation. The first and second heart sounds were normal and physiologic splitting of the second heart sound was noted. There were no murmurs, rubs, clicks, or gallops. Abdominal exam revealed normal bowel sounds. The abdomen was soft, non-tender, and without masses, organomegaly, or appreciable enlargement of the abdominal aorta. Examination of the extremities revealed easily palpable radial, femoral and pedal pulses. There was no cyanosis, clubbing or edema. Examination of the skin revealed no evidence of significant rashes, suspicious appearing nevi or other concerning lesions. Neurologically, the patient is awake and alert and the patient does not have any focal neurological deficit. Cranial nerves are essentially intact. Assessment and Plan Plan: 1 obstructive sleep apnea, currently on CPAP therapy at a pressure of 12 cm of water. He remains successful, and the patient is refreshed and alert during the day. His current [place] score is down to 4. 2 Obesity, BMI 42 3 non-occlusice CAD, recent cardiac catheterization showing no evidence of any significant coronary artery disease and disease with a nonocclusive 4 Diabetes mellitus 5 BPH 6 Hyperlipidemia 7 Depression 8 hypertension and the patient has been on a combination of Accupril and Lopressor an outpatient basis Plan - Treatment is successful and a compliancy check was completed and the patient will be kept on the same pressure setting for now. The patient has an older generation respironic unit and the machine is functional for now. For now, we'll keep him on the same CPAP unit with the intention of updating his machine in few years time and or once his machine malfunctions. - Weight loss - tighter BP control and the patient is going to work with the PCP in that regard - Implement sleep hygiene measures - Supplies are all refilled - See him back in 2 years time in follow-up
== END ==
LOC: SLEEP 12:54
PROVIDERS: ATTEND Internal Medicine Critical Care Medicine
DX: G47.33 Obstructive sleep apnea (adult) (pediatric) (principal); E66.9 Obesity, unspecified; E11.9 Type 2 diabetes mellitus without complications; N40.0 Benign prostatic hyperplasia without lower urinary tract symptoms; I10 Essential (primary) hypertension; E78.5 Hyperlipidemia, unspecified; F32.9 Major depressive disorder, single episode, unspecified; I25.10 Atherosclerotic heart disease of native coronary artery without angina pectoris; Z99.89 Dependence on other enabling machines and devices; Z79.899 Other long term (current) drug therapy; Z91.041 Radiographic dye allergy status; Z68.41 Body mass index [BMI] 40.0-44.9, adult; Z79.02 Long term (current) use of antithrombotics/antiplatelets; Z79.82 Long term (current) use of aspirin; Z79.84 Long term (current) use of oral hypoglycemic drugs

== ENCOUNTER → 2022-11-03 | Outpatient (CLI) | payer MEDICARE ==
--- NOTE | 2022-11-03 15:24 | P.PN ---
Progress Note - Text Progress Note Date: 11/03/222022, the patient is being seen for a follow-up regarding obstructive sleep apnea. This patient has obstructive sleep apnea and the patient has been treated with a CPAP pressure of 12 cm of water and the patient is coming in for an annual check. He is doing well. He has no specific complaints. He is compliant to his CPAP therapy and his machine remains functional. While on the current machine, the patient demonstrated excellent compliancy. Overall usage over the past 30 days has been 28 out of 30 and the patient has been achieving around 7.6 hours of CPAP use per night. His current pressures of 12 cm of water with a leak of 47 L/m and his AHI is down to 1.4. His weight is down from 253- 244. No hypersomnia or sleepiness during the day. No snoring while on treatment. No morning headaches. His comorbid conditions of old inactive and stable. He has diabetes mellitus, BPH, hyperlipidemia and history of depression. No sleep fragmentation. No other complaints otherwise BP is 103/66, pulse is 68, respirations 16, temperature is 98.1, weight is 244 and the height is 5 feet and 4 inches. His [place] score is at 5 The patient appeared well nourished and normally developed. Vital signs as documented. Head exam is unremarkable. No scleral icterus or corneal arcus noted. Neck is without jugular venous distension, thyromegaly, or carotid bruits. Carotid upstrokes are brisk bilaterally. Lungs are clear to auscultation and percussion. Cardiac exam reveals the PMI to be normally sized and situated. Rhythm is regular. First and second heart sounds normal. No murmurs, rubs or gallops. Abdominal exam reveals normal bowel sounds, no masses, no organomegaly and no aortic enlargement. Extremities are nonedematous and both femoral and pedal pulses are normal.Examination of the skin revealed no evidence of significant rashes, suspicious appearing nevi or other concerning lesions.Neurologically, the patient is awake and alert and the patient does not have any focal neurological deficit. Cranial nerves are essentially intact. Assessment Symptomatic obstructive sleep apnea, successfully treated with CPAP pressure of 12 cm of water Obesity with a BMI of 41.2 with interval weight loss Hypersomnia improved and the patient's aport score is down to 5 and the patient remains compliant to CPAP therapy Nonocclusive coronary artery disease Diabetes mellitus type 2 BPH Hyperlipidemia Depression Hypertension with adequate blood pressure control.. Osteoarthritis Plan Continue CPAP therapy the same level of pressures. Encourage further weight loss. Refills will be given on his supplies. No active issues for now. We'll continue to follow make further recommendations based on his progress. The patient will see him back in a year's time and follow-up.
== END ==
LOC: 3 N SLEEP 13:04
PROVIDERS: ATTEND Internal Medicine Critical Care Medicine
DX: G47.33 Obstructive sleep apnea (adult) (pediatric) (principal); E66.9 Obesity, unspecified; E11.9 Type 2 diabetes mellitus without complications; E78.5 Hyperlipidemia, unspecified; F32.A Depression, unspecified; I25.10 Atherosclerotic heart disease of native coronary artery without angina pectoris; M19.90 Unspecified osteoarthritis, unspecified site; N40.0 Benign prostatic hyperplasia without lower urinary tract symptoms; I10 Essential (primary) hypertension; Z91.041 Radiographic dye allergy status; Z79.84 Long term (current) use of oral hypoglycemic drugs; Z79.899 Other long term (current) drug therapy
CPT/HCPCS: 99212